=== PATIENT | female | born 1985 | race Caucasian/White ===

== ENCOUNTER 2016-07-20 15:43 | Emergency (ER) | payer OTHER ==
[2016-07-20 16:36] VITALS: BP 124/82
--- NOTE | 2016-07-20 17:52 | UC ---
Throat Pain/Nasal Roel HPI - HPI Summary HPI Summary: DAUGHTER TESTED POSITIVE FOR STREP TONSILLITIS; HAS HAD COUGH FOR 3 WEEKS, AND SORE THROAT LAST THREE DAYS. NO FEVER. - History of Current Complaint Chief Complaint: UCRespiratory Stated Complaint: COLD,COUGH,ST Time Seen by Provider: 07/20/16 17:03 Hx Obtained From: Patient Hx Last Menstrual Period: 2 WEEKS AGO Onset/Duration: Gradual Onset, Lasting Days, Still Present Severity: Moderate Cough: None Associated Signs & Symptoms: Positive: Dysphagia, Hoarseness - Epiglottits Risk Factors Epiglottis Risk Factors: Negative - Allergies/Home Medications Allergies/Adverse Reactions: Allergies Allergy/AdvReac Type Severity Reaction Status Date / Time SEASONAL,DUST,ANIMAL Allergy Unknown Unknown Uncoded 07/20/16 16:34 Reaction Details Home Medications: Home Medications [place] Carbonate TAB* 300 mg PO DAILY 07/20/16 [History Confirmed 07/20/16] [place] Carbonate TAB* 450 mg PO BID 07/20/16 [History Confirmed 07/20/16] PMH/Surg Hx/FS Hx/Imm Hx Previously Healthy: Yes Endocrine History Of: Reports: Diabetes - gestational Denies: Thyroid Disease Cardiovascular History Of: Denies: Cardiac Disorders, Hypertension Respiratory History Of: Denies: COPD, Asthma GI/ History Of: Denies: Ulcer Psychological History Of: Reports: Anxiety, Bipolar Disorder - dx 09/17 - Surgical History Surgical History: Yes Surgery Procedure, Year, and Place: ;. tendon surgery R knee;. lasik bilat eyes - Family History Known Family History: Positive: Other - DAUGHTER HAS STREP - Social History Alcohol Use: None Substance Use Type: None Substance Use Comment - Amount & Last Used: occassional Smoking Status (MU): Never Smoked Tobacco - Immunization History Most Recent Tetanus Shot: 01/16/11 Review of Systems Constitutional: Negative Skin: Negative Eyes: Negative ENT: Sore Throat Respiratory: Cough Cardiovascular: Negative Gastrointestinal: Negative Genitourinary: Negative Motor: Negative Neurovascular: Negative Musculoskeletal: Negative Neurological: Negative Psychological: Negative All Other Systems Reviewed And Are Negative: Yes Physical Exam Triage Information Reviewed: Yes Appearance: No Pain Distress, Well-Nourished, Ill-Appearing - MILD Vital Signs: Initial Vital Signs Temp 98.5 F 07/20/16 16:31 Pulse 80 07/20/16 16:31 Resp 18 07/20/16 16:31 BP 124/82 07/20/16 16:31 Pulse Ox 97 07/20/16 16:31 Vital Signs Reviewed: Yes Eye Exam: Normal ENT: Positive: Hearing grossly normal, Pharyngeal erythema, TMs normal, Tonsillar swelling, Tonsillar exudate Dental Exam: Normal Neck exam: Normal Neck: Positive: Supple, Nontender, No Lymphadenopathy Respiratory Exam: Other - COUGH Respiratory: Positive: Chest non-tender, Lungs clear, Normal breath sounds, No respiratory distress, No accessory muscle use Cardiovascular Exam: Normal Cardiovascular: Positive: RRR, No Murmur, Pulses Normal Abdominal Exam: Normal Abdomen Description: Positive: Nontender, No Organomegaly Musculoskeletal Exam: Normal Neurological Exam: Normal Psychological Exam: Normal Psychological: Positive: Normal Response To Family Skin Exam: Normal Throat Pain/Nasal Course/Dx - Differential Dx/Diagnosis Differential Diagnosis/HQI/PQRI: Otitis Media, Pharyngitis, Sinusitis, Tonsillitis, URI Provider Diagnoses: TONSILLITIS Discharge - Discharge Plan Condition: Stable Disposition: HOME Prescriptions: Amoxicillin/Clavulanate TAB* [Augmentin TAB 875*] 875 mg PO BID #20 tab Patient Education Materials: Strep Throat (ED) Referrals: [facility] [place] PHYSICIAN REFERRAL [Outside] No Primary Care Phys,NOPCP [Primary Care Provider] -
== END 2016-07-20 18:00 | disposition home or self-care (01) ==
LOC: UCEAST 15:43
DX: J03.90 Acute tonsillitis, unspecified (principal)
CPT/HCPCS: 87651; 99212; G0463

== ENCOUNTER 2017-02-10 11:11 | Emergency (ER) | payer OTHER ==
[2017-02-10] MEDS ORDERED: Albuterol HFA INHALER* 8 gm MDI INH ONE (13:25)
[2017-02-10 14:16] VITALS: BP 125/79
--- NOTE | 2017-02-10 17:34 | ED ---
Shortness of Breath - HPI Summary HPI Summary: Patient presents with feelings of left sided chest wall pain and SOB since anxiety. She states it felt like her anxiety, so she took her anti-anxiety medication as well as her allergy medication without relief. She states SOB and pain is worse when she takes a deep breath and is discretely located over the left anterior chest wall. The pain is reproducible. She denies exertion. Pain is not better or worse with rest. Pain is 2/10. She notes to SOB but states on arrival to the ED she is breathing OK. She denies any other symptoms. She has anxiety at baseline, but denies ashtma. Denies fevers, sweats, chills or weakness. Denies recent travel. - History of Current Complaint Chief Complaint: EDChestWallPain Time Seen by Provider: 02/10/17 12:06 Hx Obtained From: Patient Onset/Duration: Sudden Onset Timing: Constant Current Severity: Mild Aggrevating Factors: Deep Breaths Alleviating Factors: Nothing Associated Signs & Symptoms: Chest Pain Unrelated to Cough - Risk Factors Pulmonary Embolism: Negative Cardiac: Negative Pseudomonas: Negative Tuberculosis: Negative - Allergy/Home Medications Allergies/Adverse Reactions: Allergies Allergy/AdvReac Type Severity Reaction Status Date / Time SEASONAL,DUST,ANIMAL Allergy Unknown Unknown Uncoded 07/20/16 16:34 Reaction Details PMH/Surg Hx/FS Hx/Imm Hx Previously Healthy: Yes Endocrine/Hematology History: Reports: Hx Diabetes - gestational Denies: Hx Thyroid Disease Cardiovascular History: Denies: Hx Hypertension Respiratory History: Denies: Hx Asthma, Hx Chronic Obstructive Pulmonary Disease (COPD) GI History: Denies: Hx Ulcer Musculoskeletal History: Reports: Other Musculoskeletal History - pain in multiple locations, especially in anterior chest area Sensory History: Reports: Hx Contacts or Glasses Denies: Other Sensory Impairments Opthamlomology History: Reports: Hx Contacts or Glasses Denies: Other Sensory Impairments Psychiatric History: Reports: Hx Anxiety, Hx Bipolar Disorder - dx 09/17 - Cancer History Cancer Type, Location and Year: denies - Surgical History Surgery Procedure, Year, and Place: ;. tendon surgery R knee;. lasik bilat eyes - Immunization History Hx Pertussis Vaccination: No Immunizations Up to Date: Unable to Obtain/Confirm Infectious Disease History: No Infectious Disease History: Denies: Hx Clostridium Difficile, Hx Hepatitis, Hx Human Immunodeficiency Virus (HIV), Hx of Known/Suspected MRSA, Hx Shingles, Hx Tuberculosis, Hx Known/ Suspected VRE, Hx Known/Suspected VRSA, History Other Infectious Disease, Traveled Outside the [place] in Last 30 Days - Family History Known Family History: Positive: Other - DAUGHTER HAS STREP - Social History Occupation: Employed Full-time Lives: With Family Alcohol Use: None Hx Substance Use: No Substance Use Type: Reports: None Substance Use Comment - Amount & Last Used: occassional Hx Tobacco Use: No Smoking Status (MU): Never Smoked Tobacco Review of Systems Positive: Fever, Chills, Fatigue Eyes: Negative ENT: Negative Positive: Chest Pain - chest wall - reproducible Respiratory: Negative Genitourinary: Negative Positive: no symptoms reported, see HPI Musculoskeletal: Negative Neurological: Negative Psychological: Normal All Other Systems Reviewed And Are Negative: Yes Physical Exam Triage Information Reviewed: Yes Vital Signs On Initial Exam: Initial Vitals Temp Pulse Resp BP Pulse Ox 99.3 F 90 20 127/84 100 02/10/17 11:32 02/10/17 11:32 02/10/17 11:32 02/10/17 11:32 02/10/17 11:32 Vital Signs Reviewed: Yes Appearance: Positive: Well-Appearing, Well-Nourished Skin: Positive: Warm, Skin Color Reflects Adequate Perfusion Head/Face: Positive: Normal Head/Face Inspection Eyes: Positive: EOMI, KATE Neck: Positive: Supple, No Lymphadenopathy Respiratory/Lung Sounds: Positive: Clear to Auscultation Cardiovascular: Positive: Normal, Pulses are Symmetrical in both Upper and Lower Extremities Musculoskeletal: Positive: Strength/ROM Intact Neurological: Positive: Sensory/Motor Intact, Alert, Oriented to Person Place, Time, Speech Normal Psychiatric: Positive: Normal AVPU Assessment: Alert Diagnostics - Vital Signs Vital Signs Temp Pulse Resp BP Pulse Ox 02/10/17 14:15 98.9 F 84 16 125/79 02/10/17 12:51 99.3 F 90 20 127/84 100 02/10/17 11:32 99.3 F 90 20 127/84 100 - Laboratory Lab Statement: Any lab studies that have been ordered have been reviewed, and results considered in the medical decision making process. Course/Dx - Course Course Of Treatment: Patient would like to try an albuterol inhaler and her anxity medication first. EKG shows no changes. She is encouraged to return if symptoms become worse. Lungs CTA. Likely this is from anxiety or chest wall pain which is muscular. Patient agrees and will follow up as needed. - Diagnoses Differential Diagnosis/HQI/PQRI: Positive: Asthma, Chest Wall Pain, Pulmonary Embolism Provider Diagnoses: Chest wall pain, Shortness of breath Discharge - Discharge Plan Condition: Stable Disposition: HOME Patient Education Materials: Dyspnea (ED), Chest Wall Pain (ED) Forms: *Work Release Referrals: Yolanda Muñoz MD [Primary Care Provider] - Additional Instructions: Take anti-anxiety medication as directed Ibuprofen 600mg three times daily for discomfort Albuterol inhaler : 1 puff every 4 hours as needed for shortness of breath If any symptoms become worse, return to the ED immediately.
== END 2017-02-10 14:15 | disposition home or self-care (01) ==
LOC: ED 11:11
DX: R07.89 Other chest pain (principal); R06.02 Shortness of breath; F41.9 Anxiety disorder, unspecified; R05 Cough
CPT/HCPCS: 93005; 99283; A9270-GY